=== PATIENT | male | born 1965 | race African-American/Black ===

== ENCOUNTER → 2019-06-24 | Day surgery (SDC) | payer BC ==
[~2019-06-24] VITALS: Ht 182.8 cm; Wt 99.8 kg
[~2019-06-24] MED LIST: AMLODIPINE BESY10 MG PO; HYDR25T PO; MECLIZINE HCL25 M2 PO; PRINIVIL10 MG PO
--- NOTE | ~2019-06-24 | O ---
[place], [place] OPERATIVE NOTE NAME: IVANA GRAVES JR UNIT #: [id number] ROOM: DOCTOR: AMIRAH NUÑEZ MD BIRTHDATE: [birth year] DOS: 06/24/2019 GASTROENDOSCOPIC REPORT INDICATION: This gentleman is a 53-year-old who is undergoing colonic screening exam. ALLERGIES: No known medication. FAMILY HISTORY: Colonic polyp in father. PAST SURGICAL HISTORY: Unremarkable. PAST MEDICAL HISTORY: Hypertension. SOCIAL HISTORY: Nonsmoker, social alcohol consumer. PROCEDURE: Today's procedure part of investigation is colonoscopy. PREMEDICATION: Propofol. SCOPE: Olympus forward-viewing colonoscope 10L video. REPORT: After putting the patient in left lateral position and application of lubricant to the scope, the scope was introduced. Thereafter, under direct visualization, advanced through the length of colon without difficulty. Colon mucosa and vascularity carefully examined. Base of the cecum explored, appendiceal orifice identified, ileocecal valve was defined. Scope was withdrawn back to the rectal pouch, sessile polypoid lesion with piecemeal polypectomy was removed. Air was suctioned out. The patient was extubated, tolerated the procedure well. IMPRESSION: Sessile colonic polyp rectal pouch, status post piecemeal polypectomy. PLAN: High fiber fruit diet. ACTIVITY: Ad torri. FOLLOWUP: Routinely with you in office, p.r.n. visit with us in [facility]. Thank you very much indeed. [place], [place] OPERATIVE NOTE NAME: IVANA GRAVES JR UNIT #: [id number] ROOM: DOCTOR: AMIRAH NUÑEZ MD BIRTHDATE: [birth year] AMIRAH NUÑEZ MD CM:OPRECORD:OPERATIVE NOTE [id number] AMIRAH NUÑEZ MD 06/24/19 1008 interface
[2019-06-24 08:29] VITALS: BP 146/89
[2019-06-24 09:38] VITALS: BP 109/71
[2019-06-24 09:52] VITALS: BP 114/67
[2019-06-24 10:08] VITALS: BP 116/65
== END | disposition home or self-care (01) ==
LOC: SDC 06-19 10:15
DX: Z12.11 Encounter for screening for malignant neoplasm of colon (principal); K63.5 Polyp of colon; I10 Essential (primary) hypertension; Z87.891 Personal history of nicotine dependence; Z80.0 Family history of malignant neoplasm of digestive organs

== ENCOUNTER → 2020-07-25 | Outpatient (CLI) | payer BC | END | disposition home or self-care (01) | LOC: COVID19 15:22 | PROVIDERS: ATTEND Internal Medicine Nephrology | DX: U07.1 COVID-19 (principal) ==

== ENCOUNTER → 2023-05-01 | Outpatient (CLI) | payer BC ==
[2023-05-01 14:32] LABS: BILIRUBIN Negative (Negative); BLOOD Negative (Negative); CLARITY Clear (Clear); COLOR Yellow (Yellow); GLUCOSE Negative (Negative); KETONE Negative (Negative); LEUKO ESTERASE Negative (Negative); NITRITE Negative (Negative); PH 7.5 (4.5-8.0)
[2023-05-01 14:45] LABS: BACTERIA 1+; MUCOUS 1+; WBC 0-2 wbc/hpf (0-5)
[2023-05-01 14:47] LABS: URINE CREATININE RANDOM 174.75 mg/dL
[2023-05-01 14:51] LABS: ALKALINE PHOSPHATASE 64 U/L (46-116); BUN 11 mg/dl (9-23); CHLORIDE 105 mmol/L (98-107); CHOLESTEROL 192 mg/dL (<200); LDL CHOLESTEROL 113 mg/dL (9-159); SGPT/ALT 24 U/L (10-49); TOTAL PROTEIN 7.8 gm/dL (6.0-8.0); TRIGLYCERIDES 162 mg/dl (<150)
== END | disposition home or self-care (01) ==
LOC: LAB 13:57
PROVIDERS: ATTEND Student in an Organized Health Care Education/Training Program
DX: I10 Essential (primary) hypertension (principal); E78.00 Pure hypercholesterolemia, unspecified

== ENCOUNTER → 2023-06-03 | Outpatient (CLI) | payer BC | END | disposition home or self-care (01) | LOC: CARD 08:05 | PROVIDERS: ATTEND Student in an Organized Health Care Education/Training Program | DX: R01.1 Cardiac murmur, unspecified (principal) ==

== ENCOUNTER → 2023-09-04 | Outpatient (CLI) | payer BC | END | disposition home or self-care (01) | LOC: US 08-12 15:00 | PROVIDERS: ATTEND Family Medicine | DX: I10 Essential (primary) hypertension (principal) ==